=== PATIENT | female | born 1985 | race Two or more races ===

== ENCOUNTER 2019-01-20 23:01 | Outpatient (CLI) | payer MEDICAID | END 2019-01-21 03:05 | disposition home or self-care (01) | LOC: OBT 23:01 → L-D 23:02 | DX: O47.1 False labor at or after 37 completed weeks of gestation (principal); O26.893 Other specified pregnancy related conditions, third trimester; N89.8 Other specified noninflammatory disorders of vagina; Z3A.38 38 weeks gestation of pregnancy | CPT/HCPCS: 76815; 76818 ==

== ENCOUNTER 2019-01-27 04:36 | Inpatient (IN) | payer MEDICAID ==
[2019-01-27] MEDS ORDERED: OXYTOCIN 30 UNITS/LR 500 ML IV ×3 (05:30→21:00)
[2019-01-27] MEDS ORDERED: LIDOCAINE 1% (MPF) 30 ML INJ INJ (05:30)
[2019-01-27] MEDS ORDERED: METHYLERGONOVINE 0.2 MG INJ IM ×2 (05:30→21:00)
[2019-01-27] MEDS ORDERED: CARBOPROST 250 MCG INJ IM ×2 (05:30→21:00)
[2019-01-27] MEDS ORDERED: MISOPROSTOL 200 MCG TAB PR ×2 (05:30→21:00)
[2019-01-27] MEDS ORDERED: OXYCODONE/ACETAMINOPHEN (5/325) TAB PO (05:30)
[2019-01-27] MEDS ORDERED: IBUPROFEN 600 MG TAB PO (05:30)
[2019-01-27] MEDS ORDERED: BUTORPHANOL 2 MG INJ IV (05:30)
[2019-01-27] MEDS: LACTATED RINGER'S 1,000 ML IV ×3 (06:13→13:50)
[2019-01-27 06:45] LABS: ADD MAN DIFF? NO
[2019-01-27 06:48] LABS: WHITE BLOOD COUNT 12.4 10^3/ul (4.8-10.8)
[2019-01-27 06:48] LABS: BASOPHILS % 0.3 % (0.0-2.0); EOSINOPHILS % 0.3 % (0.0-7.0); HEMATOCRIT 38.3 % (37.0-47.0); HEMOGLOBIN 12.8 g/dl (12.0-16.0); LYMPHOCYTES # 1.9 10^3/ul (0.8-2.9); MEAN CORPUSCULAR HGB CONC 33.4 g/dl (32.0-37.0); MEAN CORPUSCULAR VOLUME 95.8 fl (82.0-101.0); MEAN PLATELET VOLUME 11.7 fl (7.4-10.4); MONOCYTE # 0.7 10^3/ul (0.3-0.9); MONOCYTES % 5.5 % (0.0-11.0); NEUTROPHIL # 9.6 10^3/ul (1.6-7.5); NEUTROPHILS % 77.7 % (39.0-77.0); PLATELET COUNT 197 10^3/UL (140-415); RED CELL DISTRIBUTION WIDTH 12.2 % (11.5-14.5)
[2019-01-27 07:07] LABS: INR 0.85; PROTIME 11.7 Sec (11.9-14.9); PT RATIO 0.9
[2019-01-27 07:08] LABS: PARTIAL THROMBOPLASTIN TIME 26.7 Sec (23.0-35.0)
[2019-01-27 07:39] LABS: HEPATITIS B SURFACE ANTIGEN NEGATIVE (NEGATIVE)
[2019-01-27] MEDS: OXYTOCIN 30 UNITS/LR 500 ML IV ×3 (08:33→22:14)
[2019-01-27 08:46] LABS: HIV 1&2 ANTIBODY NEGATIVE (NEGATIVE)
[2019-01-27] MEDS ORDERED: FENTAnyl 2MCG/ML-ROPIV 0.2% 100 ML (13:48)
[2019-01-27] MEDS ORDERED: ONDANSETRON 4 MG INJ IV (14:30)
[2019-01-27] MEDS ORDERED: NALOXONE (0.4 MG/ML) INJ IV (14:30)
[2019-01-27] MEDS ORDERED: DIPHENHYDRAMINE 50 MG INJ IV (14:30)
[2019-01-27] MEDS ORDERED: NALBUPHINE HCL (10 MG/1 ML) INJ IV (14:30)
[2019-01-27] MEDS ORDERED: FENTAnyl 2MCG/ML-ROPIV 0.2% 100 ML BAG EPI (14:30)
[2019-01-27 17:44] LABS: RAPID PLASMA REAGIN NONREACTIVE (NR)
[2019-01-27] MEDS ORDERED: NACL 0.9% 3 ML SYG IV (21:00)
[2019-01-27] MEDS ORDERED: SENNA/DOCUSATE NA (8.6MG/50MG) TAB PO (21:00)
[2019-01-27] MEDS ORDERED: OXYCODONE/ASPIRIN (4.88/325) TAB PO (21:00)
[2019-01-27] MEDS ORDERED: ZOLPIDEM 5 MG TAB PO (21:00)
[2019-01-27] MEDS: BENZOCAINE 20% 56 ML SPRAY TOP (21:35)
[2019-01-27] MEDS: WITCH HAZEL/GLYCERIN PAD PR (21:35)
[2019-01-27] MEDS: LANOLIN HPA 1 PKT TOP (21:36)
[2019-01-27] MEDS: MAGNESIUM HYDROXIDE 30ML CUP PO (21:36)
[2019-01-27] MEDS: SENNA/DOCUSATE NA (8.6MG/50MG) TAB PO (21:36)
[2019-01-27] MEDS: IBUPROFEN 600 MG TAB PO (23:34)
[2019-01-28] MEDS: IBUPROFEN 600 MG TAB PO ×3 (05:57→17:29)
[2019-01-28 06:07] LABS: BASOPHILS % 0.2 % (0.0-2.0); EOSINOPHILS % 0.3 % (0.0-7.0); HEMATOCRIT 33.1 % (37.0-47.0); HEMOGLOBIN 11.1 g/dl (12.0-16.0); LYMPHOCYTES # 1.6 10^3/ul (0.8-2.9); LYMPHOCYTES % 10.3 % (15.0-51.0); MEAN CORPUSCULAR HEMOGLOBIN 32.4 pg (29.0-33.0); MEAN CORPUSCULAR HGB CONC 33.5 g/dl (32.0-37.0); MEAN CORPUSCULAR VOLUME 96.5 fl (82.0-101.0); MEAN PLATELET VOLUME 11.2 fl (7.4-10.4); MONOCYTES % 6.6 % (0.0-11.0); NEUTROPHIL # 12.5 10^3/ul (1.6-7.5); NEUTROPHILS % 81.9 % (39.0-77.0); PLATELET COUNT 151 10^3/UL (140-415); RED BLOOD COUNT 3.43 10^6/ul (4.20-5.40); RED CELL DISTRIBUTION WIDTH 12.1 % (11.5-14.5)
[2019-01-28 06:07] LABS: WHITE BLOOD COUNT 15.2 10^3/ul (4.8-10.8)
[2019-01-28 06:08] LABS: ADD MAN DIFF? NO
[2019-01-28] MEDS: SENNA/DOCUSATE NA (8.6MG/50MG) TAB PO ×2 (09:39→21:00)
[2019-01-28] MEDS: MAGNESIUM HYDROXIDE 30ML CUP PO ×2 (09:39→21:00)
[2019-01-29] MEDS: WITCH HAZEL/GLYCERIN PAD PR (05:27)
[2019-01-29] MEDS: IBUPROFEN 600 MG TAB PO ×3 (05:27→12:00)
[2019-01-29] MEDS: BENZOCAINE 20% 56 ML SPRAY TOP (05:27)
[2019-01-29] MEDS: DIPHTH/TET/ACEL PERTUSS (ADULT) 0.5 ML VIAL IM* (08:36)
[2019-01-29] MEDS: MAGNESIUM HYDROXIDE 30ML CUP PO (09:00)
[2019-01-29] MEDS: SENNA/DOCUSATE NA (8.6MG/50MG) TAB PO (10:12)
== END 2019-01-29 17:18 | disposition home or self-care (01) | DRG 807 ==
LOC: OBT 04:36 → L-D 04:36 → OBT 05:22 → L-D 05:22 → PP1 19:49
PROVIDERS: Obstetrics & Gynecology
PROC: 10E0XZZ Delivery of Products of Conception, External Approach (ICD-10-PCS; principal; 2019-01-27)
PROC: 0HQ9XZZ Repair Perineum Skin, External Approach (ICD-10-PCS; 2019-01-27)
DX: O70.9 Perineal laceration during delivery, unspecified (principal); Z37.0 Single live birth; Z3A.39 39 weeks gestation of pregnancy
CPT/HCPCS: 62322; 85025; 85610; 85730; 86592; 86703; 86850; 86900; 86901; 87340; 99464